=== PATIENT | female | born 1950 | race Caucasian/White ===

== ENCOUNTER 2019-09-20 14:18 | Inpatient (IN) | payer MEDICARE, MEDICAID ==
[~2019-09-20] VITALS: Ht 162.6 cm; Wt 76.2 kg
--- NOTE | 2019-09-20 14:25 | NUR ---
REC'D PER FROM DR. LIBERTY NOLEN DIRECT ADMIT. SEE ASSESSMENT. GEOVANNY CATHERINE admitted to room 412-1, with an admitting diagnosis of COPD, on 09/20/19 from [facility] via , accompanied by STAFF. GEOVANNY CATHERINE introduced to surroundings, call light, bed controls, phone, TV, temperature control, lights, meal times, smoking policy, visitor policy, side rail policy, bathrooms and showers. Patient Rights given to patient in the handbook. EGOVANNY CATHERINE verbalizes understanding that [facility] is not responsible for the loss or damage to any personal effects or valuables that are kept in the patients posession during their hospitalization. The following Patient Care Plans were discussed with the PT: Discharge Planning, PAIN, AND COPD. GEOVANNY CATHERINE verbalizes understanding of Interdisciplinary Patient Education. Patient and/or family were informed about the Rapid Response Team and its purpose.
[2019-09-20 15:05] LABS: ABG BASE EXCESS 9.5 MMOL/L (-2.5-2.5); ABG OXYGEN SATURATION 98 % (94-100); ABG PCO2 50 MMHG (35-45); ABG PH 7.45 (7.37-7.43); ABG PO2 89 MMHG (79-93); ABG TCO2 35.5 MMOL/L (21.0-31.0); ALLENS TEST POSITIVE; INSPIRED O2 6 L; PATIENT TEMP 36.8; VENTILATOR NO
--- NOTE | 2019-09-20 15:29 | NUR ---
EKTA'S CALLED TO DR. KOENIG.
[2019-09-20 15:39] LABS: BASOPHILS % (AUTO) 0 % (0-10); EOSINOPHILS # (AUTO) 0.2 10^3/uL (0.0-0.3); EOSINOPHILS % (AUTO) 1 % (0-10); HEMATOCRIT 34 % (35-52); HEMOGLOBIN 10.3 G/DL (11.5-16.0); LYMPHOCYTES # (AUTO) 1.2 X 10^3 (1.0-4.0); LYMPHOCYTES % (AUTO) 9 % (12-44); MEAN CORPUSCULAR HEMOGLOBIN 32 PG (25-34); MEAN CORPUSCULAR HGB CONC 30 G/DL (32-36); MEAN CORPUSCULAR VOLUME 107 FL (80-99); MONOCYTES % (AUTO) 7 % (0-12); NEUTROPHILS # (AUTO) 10.9 X 10^3 (1.8-7.8); NEUTROPHILS % (AUTO) 82 % (42-75); PLATELET COUNT 218 10^3/uL (130-400); RED CELL DISTRIBUTION WIDTH 16.2 % (10.0-14.5); WHITE BLOOD COUNT 13.2 10^3/uL (4.3-11.0)
[2019-09-20] MEDS ORDERED: AMIO200T4 PO (15:56)
[2019-09-20] MEDS ORDERED: HYDR-3812 PO (15:56)
[2019-09-20] MEDS ORDERED: RT-ALBUINH INH (15:56)
[2019-09-20] MEDS ORDERED: DICY20TA10 PO (15:56)
[2019-09-20] MEDS ORDERED: ACET325T38 PO (15:56)
[2019-09-20] MEDS ORDERED: PRED5TAB PO (15:56)
[2019-09-20] MEDS ORDERED: LEVO100T7 PO (15:56)
[2019-09-20] MEDS ORDERED: DIGO125T3 PO (15:56)
[2019-09-20] MEDS ORDERED: LETR2.5T5 PO (15:56)
[2019-09-20] MEDS ORDERED: VNL75T PO (15:56)
[2019-09-20] MEDS ORDERED: APIX5TAB PO (15:56)
[2019-09-20] MEDS ORDERED: FERR325T18 PO (15:56)
[2019-09-20] MEDS ORDERED: CYCL10TA9 PO (15:56)
[2019-09-20] MEDS ORDERED: NALO4SPR NS (15:56)
[2019-09-20] MEDS ORDERED: MAGN400T39 PO (15:56)
[2019-09-20] MEDS ORDERED: GABA-490 PO (15:56)
[2019-09-20] MEDS ORDERED: POTA10TA10 PO (15:56)
[2019-09-20] MEDS ORDERED: LINA145C PO (15:56)
[2019-09-20] MEDS ORDERED: ASCO-262 PO (15:56)
[2019-09-20] MEDS ORDERED: ONDA4TAB10 PO (15:56)
[2019-09-20] MEDS ORDERED: DICL100G18 TP (15:56)
[2019-09-20] MEDS ORDERED: DOCU-143 PO (15:56)
[2019-09-20] MEDS ORDERED: IPRA3AMP31 NEB (15:56)
[2019-09-20] MEDS ORDERED: BUME1TAB8 PO (15:56)
[2019-09-20 16:05] LABS: ALBUMIN 3.7 GM/DL (3.2-4.5); BILIRUBIN,TOTAL 0.5 MG/DL (0.1-1.0); CALCIUM 9.1 MG/DL (8.5-10.1); CREATININE SERUM 1.05 MG/DL (0.60-1.30); PHOSPHORUS 3.1 MG/DL (2.3-4.7); POTASSIUM 3.3 MMOL/L (3.6-5.0); TOTAL PROTEIN 6.6 GM/DL (6.4-8.2)
--- NOTE | 2019-09-20 16:05 | NUR ---
SPOKE WITH THE PATIENT ABOUT HER MEDICATIONS. SHE STATES SHE IS UNSURE OF WHAT EXACTLY SHE TAKES, [facility] [place] SETS UP HER MEDS IN A [facility]ILL [employer]PERATOR AND SHE TAKES THEM FROM THERE. SHE STATES THE ONLY THING SHE MANAGES ON HER OWN THAT IS NOT IN THAT PILL RENOVATOR MACHINE OPERATOR IS HER ALBUTEROL INHALER AND NEBULIZER SOLUTION. SHE STATES EVEN HER HYDROCODONE IS IN THE PILL RENOVATOR MACHINE OPERATOR. I HAD A LIST FAXED OVER FROM [facility] AND COMPARED IT WITH THE EXT MED HX. [facility] LIST STATES GABAPENTIN 300MG TID HOWEVER ON 09-12-19 [facility] FILLED GABAPENTIN 400MG TID #90 - I VERIFIED WITH THEM THIS WAS PICKED UP BY THE PATIENT AND IT WAS A RECENT DOSE CHANGE. I UPDATED THE MED REC WITH THIS MOST RECENT DOSE. THE LIST FROM [facility] HAS PREDNISONE 20MG 2 TABS DAILY X 5 DAYS DATED 09-03-19 - I CAN SEE WHERE A SCRIPT WAS FILLED LIKE THIS ON THAT DATE HOWEVER IT WOULD BE FINISHED. SHE HAS MORE RECENTLY FILLED PREDNISONE 5MG BID #40 09-12-19 - I PUT THAT DOSE ON THE MED REC AT THIS TIME. SHE IS PAST DUE FOR REFILL ON LEVOTHYROXINE, IT WAS LAST FILLED 100MCG #60 06-15-19 - HOWEVER WHEN I CALLED THE PHARMACY TO CONFIRM THEY STATED SHE HAS BEEN IN AND OUT OF THE HOSPITAL SO MAY HAVE HAD A SUPPLY BUILT UP. I NOTED THE DATE ON THE MED REC. HER HYDROCODONE WAS FILLED #168 FOR 28 DAYS HOWEVER [facility] LIST STATES 1 Q 6H, I PUT IT ON MED REC Q6H SINCE PATIENT STATES [facility] PUTS IT IN HER PILL RENOVATOR MACHINE OPERATOR. POTASSIUM WAS FILLED 10MEQ #240 FOR 30 DAYS 05-17-19 HOWEVER IT IS REPORTED ON [facility] LIST 2 TABS DAILY, I LEFT IT 2 TABS DAILY LIKE [facility] REPORTED IT BECAUSE IT WOULD BE GONE IF SHE WAS STILL TAKING IT WRITTEN AND THERE HAVE BEEN SEVERAL FILLS FOR VARIOUS FLUID PILLS ON THE EXT MED HX SO IT IS LIKELY THE DOSE HAS BEEN ADJUSTED. THE LIST FROM [facility] STATES VOLTAREN GEL Q6H PRN, [facility] HAS NEVER DISPENSED THIS MEDICATION. I DID ADD IT TO THE MED REC PRN SINCE IT WAS REPORTED BY [facility]. IN ADDITION TO THE MED LIST FROM [facility] FILLED NARCAN SPRAY 09-12-19 - THEY STATE IT IS STILL AT THE STORE AND WAITING FOR THE PATIENT TO BE HOME TO DELIVER IT. I ADDED IT TO THE MED REC AT THIS TIME. OTC MEDS: MAG OX 400MG BID TYLENOL 325MG Q6H PRN VITAMIN C 500MG DAILY COLACE 100MG BID FERROUS SULFATE 325MG DAILY
[2019-09-20 16:16] LABS: ANISOCYTOSIS SLIGHT; EOSINOPHILS % (MANUAL) 3 %; HYPOCHROMASIA SLIGHT; LYMPHOCYTES % (MANUAL) 10 %; MONOCYTES % (MANUAL) 5 %; NEUTROPHILS % (MANUAL) 82 %; STOMATOCYTES SLIGHT
[2019-09-20 16:21] VITALS: BP 145/85
[2019-09-20 16:23] VITALS: BP 134/79
--- NOTE | 2019-09-20 16:34 | Diagnostic Imaging Report ---
PROCEDURE: US Venous Lower Ext Ubaldo. TECHNIQUE: Multiple real-time grayscale images were obtained over the lower extremities in various projections, bilaterally. Additional duplex Doppler and color Doppler images were also obtained. INDICATION: Bilateral lower extremity pain. EXAMINATIONS: Both grayscale and color Doppler imaging of the deep veins of the lower extremities were performed with waveform analysis. FINDINGS: There is no intraluminal filling defect. Normal continuous flow is seen throughout the deep venous systems of both legs, and there is normal response to augmentation. The deep veins compress normally. IMPRESSION: No ultrasound evidence of deep venous thrombosis in either lower extremity. Dictated by: Dictated on workstation # [id number]
[2019-09-20] MEDS ORDERED: IOHEXOL 350 MG/ML 100 ML (OMNIPAQUE 350) VIAL IV ONE (16:45)
[2019-09-20] MEDS ORDERED: HOLD METFORMIN - RECEIVED CONTRAST 20 ML VIAL IV SCH (16:45)
[2019-09-20] MEDS ORDERED: NS 100 ML (IVPB) BAG IV ONE (16:45)
[2019-09-20] MEDS ORDERED: RT-ALBUTEROL/IPRATROPIUM 3 ML (DUONEB) VIAL IH PRN (16:45)
[2019-09-20] MEDS ORDERED: CATHETER FLUSH 10 ML SYR IV PRN ×2 (16:45→17:00)
--- NOTE | 2019-09-20 16:48 | NUR ---
ELEVATED TROPONIN. DR. KOENIG NOTIFIED. DR. PINEDA CONSULTED.
[2019-09-20] MEDS ORDERED: ENOXAPARIN 40 MG/0.4 ML (LOVENOX) SYR SC SCH (17:00)
--- NOTE | 2019-09-20 17:00 | NUR ---
STAT EKG WITH RESULTS TO DR. PINEDA.
[2019-09-20 17:15] LABS: BILIRUBIN,URINE NEGATIVE (NEGATIVE); CLARITY,URINE CLEAR; COLOR,URINE YELLOW; GLUCOSE, URINE (UA) NEGATIVE (NEGATIVE); KETONES,URINE NEGATIVE (NEGATIVE); LEUKOCYTE ESTERASE ,URINE NEGATIVE (NEGATIVE); NITRITE,URINE NEGATIVE (NEGATIVE); PROTEIN,URINE TRACE (NEGATIVE)
[2019-09-20] MEDS: methylPREDNISolone 40 MG/ML (Solu-MEDROL) VIAL IV SCH ×2 (17:15→23:08)
[2019-09-20] MEDS: NS IV 1000 ML 1,000 ML IV SCH (17:15)
--- NOTE | 2019-09-20 17:15 | Consultation-Cardiology ---
HPI-Cardiology Cardiology Consultation Date of Consultation 09/20/19 Date of Admission Time Seen by Provider: 17:12 Indication: Congestive heart failure HPI 68-year-old lady with history of congestive heart failure, chronic lip and her diastolic dysfunction, chronic atrial fibrillation, severe COPD. She was scheduled to see Dr. Skinner today in his office where she was noted to have increasing shortness of breath, patient has been traveling from [place], reported that she was tired and having worsening dyspnea, she was admitted for evaluation. She was noted to have elevated troponin level and BMP. Reported that she had a stress test done about 6 months ago which was normal, has chronic atrial fibrillation, no known history of coronary artery disease. Denied any chest pain. Denied any palpitation, complaining of fatigue and loss of energy Home Medications & Allergies Allergies: Coded Allergies: ciprofloxacin (Unverified Allergy, Severe, RASH AND SOA, 09/20/19) levofloxacin (Verified Allergy, Severe, RASH AND SOA, 09/20/19) nitrofurantoin (Verified Allergy, Intermediate, UNSURE, 09/20/19) zolpidem (Verified Adverse Reaction, Mild, CONFUSION, 09/20/19) clopidogrel (Verified Adverse Reaction, Unknown, CAUSED HER TO BRUISE TOO EASILY, 09/20/19) heparin (Verified Adverse Reaction, Unknown, CAUSED HER TO BRUISE TOO EA SILY, 09/20/19) lorazepam (Verified Adverse Reaction, Unknown, DOES NOT WANT HER TO HAVE, 09/20/19) piroxicam (Verified Adverse Reaction, Unknown, PT UNSURE, 09/20/19) Uncoded Allergies: IV DYE (Allergy, Intermediate, RASH, 09/20/19) Home Medication List Reviewed: Yes ROA-Yygdyu-Jbrpfj Hx Patient Social History Marital Status: Employed/Student: retired Alcohol Use: Denies Use Recreational Drug Use: No Smoking Status: Former Smoker Type Used: Cigarettes Recent Foreign Travel: No Recent Infectious Disease Expo: No Recent Hopitalizations: No Physical Abuse Screen: No Sexual Abuse: No Immunizations Up To Date Date of Influenza Vaccine: Jul 17, 2019 Past Medical History Discussed below Family Medical History Family Medical Hx Noncontributory to her current condition Review of Systems-General Review of Systems Constitutional: see HPI, malaise, weakness EENTM: see HPI, no symptoms reported Respiratory: see HPI, cough, dyspnea on exertion, orthopnea, short of breath Cardiovascular: see HPI; No chest pain; edema; No Hx of Intervention, No palpitations, No syncope, No vascular heart diseas, No other Gastrointestinal: no symptoms reported, see HPI Genitourinary: no symptoms reported, see HPI Musculoskeletal: see HPI, joint pain, muscle stiffness, muscle weakness Skin: no symptoms reported, see HPI Psychiatric/Neurological: No Symptoms Reported, See HPI Reviewed Test Results Reviewed Test Results Lab Laboratory Tests Test 09/20/19 14:56 09/20/19 15:30 09/20/19 16:00 Range/Units Blood Gas Puncture Site RIGHT RADIAL Blood Gas Patient Temperature 36.8 Arterial Blood pH 7.45 H 7.37-7.43 Arterial Blood Partial Pressure CO2 50 H 35-45 MMHG Arterial Blood Partial Pressure O2 89 79-93 MMHG Arterial Blood HCO3 34 H 23-27 MMOL/L Arterial Blood Total CO2 35.5 H 21.0-31.0 MMOL/L Arterial Blood Oxygen Saturation 98 94-100 % Arterial Blood Base Excess 9.5 H -2.5-2.5 MMOL/L Polo Test POSITIVE Blood Gas Ventilator Setting NO Blood Gas Inspired Oxygen 6 L White Blood Count 13.2 H 4.3-11.0 10^3/uL Red Blood Count 3.21 L 4.35-5.85 10^6/uL Hemoglobin 10.3 L 11.5-16.0 G/DL Hematocrit 34 L 35-52 % Mean Corpuscular Volume 107 H 80-99 FL Mean Corpuscular Hemoglobin 32 25-34 PG Mean Corpuscular Hemoglobin Concent 30 L 32-36 G/DL Red Cell Distribution Width 16.2 H 10.0-14.5 % Platelet Count 218 130-400 10^3/uL Mean Platelet Volume 10.0 7.4-10.4 FL Neutrophils (%) (Auto) 82 H 42-75 % Lymphocytes (%) (Auto) 9 L 12-44 % Monocytes (%) (Auto) 7 0-12 % Eosinophils (%) (Auto) 1 0-10 % Basophils (%) (Auto) 0 0-10 % Neutrophils # (Auto) 10.9 H 1.8-7.8 X 10^3 Lymphocytes # (Auto) 1.2 1.0-4.0 X 10^3 Monocytes # (Auto) 1.0 0.0-1.0 X 10^3 Eosinophils # (Auto) 0.2 0.0-0.3 10^3/uL Basophils # (Auto) 0.0 0.0-0.1 10^3/uL Neutrophils % (Manual) 82 % Lymphocytes % (Manual) 10 % Monocytes % (Manual) 5 % Eosinophils % (Manual) 3 % Hypochromasia SLIGHT Anisocytosis SLIGHT Macrocytosis SLIGHT Stomatocytes SLIGHT Sodium Level 137 135-145 MMOL/L Potassium Level 3.3 L 3.6-5.0 MMOL/L Chloride Level 92 L 98-107 MMOL/L Carbon Dioxide Level 33 H 21-32 MMOL/L Anion Gap 12 5-14 MMOL/L Blood Urea Nitrogen 14 7-18 MG/DL Creatinine 1.05 0.60-1.30 MG/DL Estimat Glomerular Filtration Rate 52 BUN/Creatinine Ratio 13 Glucose Level 104 70-105 MG/DL Lactic Acid Level 0.83 0.50-2.00 MMOL/L Calcium Level 9.1 8.5-10.1 MG/DL Corrected Calcium 9.3 8.5-10.1 MG/DL Phosphorus Level 3.1 2.3-4.7 MG/DL Magnesium Level 2.0 1.6-2.4 MG/DL Total Bilirubin 0.5 0.1-1.0 MG/DL Aspartate Amino Transf (AST/SGOT) 19 5-34 U/L Alanine Aminotransferase (ALT/SGPT) 18 0-55 U/L Alkaline Phosphatase 157 H 40-136 U/L Troponin I 0.063 H <0.028 NG/ML B-Type Natriuretic Peptide 770.6 H <100.0 PG/ML Total Protein 6.6 6.4-8.2 GM/DL Albumin 3.7 3.2-4.5 GM/DL Physical Exam Physical Exam Vital Signs Vital Signs - First Documented 09/20/19 16:21 Temp 36.5 Pulse 92 Resp 18 B/P (MAP) 145/85 (105) Pulse Ox 95 O2 Delivery Nasal Cannula O2 Flow Rate 6.00 Capillary Refill : Height, Weight, BMI Height: '" Weight: lbs. oz. kg; 29.19 BMI Method: General Appearance: WD/WN, Mild Distress Eyes: Bilateral Eye Normal Inspection, Bilateral Eye PERRL, Bilateral Eye EOMI HEENT: PERRL/EOMI, TMs Normal, Normal ENT Inspection, Pharynx Normal, Moist Mucous Membranes Neck: Full Range of Motion, Normal Inspection, Non Tender, Supple, Carotid Bruit Respiratory: Chest Non Tender, No Accessory Muscle Use, No Respiratory Distress, Rhonci Cardiovascular: Regular Rate, Rhythm, No Edema, No Gallop, No JVD, Normal Peripheral Pulses, Systolic Murmur Gastrointestinal: Normal Bowel Sounds, No Organomegaly, No Pulsatile Mass, Non Tender, Soft Back: Normal Inspection, No CVA Tenderness, No Vertebral Tenderness Extremity: Normal Capillary Refill, Normal Inspection, Normal Range of Motion, Non Tender, No Calf Tenderness, Pedal Edema (Mild) Neurologic/Psychiatric: Alert, Oriented x3, No Motor/Sensory Deficits, Normal Mood/Affect Skin: Normal Color, Warm/Dry Lymphatic: No Adenopathy A/P-Cardiology Admission Diagnosis Shortness of breath Congestive heart failure, chronic compensated left ventricular diastolic dysfunction Coronary artery disease Hypertension Hyperlipidemia Assessment/Plan Shortness of breath, acute exacerbation of COPD, managed by Dr. Skinner. Chronic atrial fibrillation, maintained on Eliquis, digoxin, amiodarone, continue to monitor, evaluate EKG, planning to evaluate 2-D echocardiogram Congestive heart failure, chronic compensated left ventricular diastolic dysfunction, mild elevation in BNP level. I will evaluate 2-D echocardiogram. Type II myocardial infarction, elevated troponin level, minimal, probably due to hypoxemia and shortness of breath, reporting that she had a stress test done about 6 months ago and it was normal at [facility] in [place], I will try to obtain copy of the results. Hypertension, restart home medication and monitor blood pressure Hyperlipidemia, monitor lipids Diabetes mellitus, followed and managed by primary care physician History of TIA with full recovery Clinical Quality Measures DVT/VTE Risk/Contraindication: Risk Factor Score Per Nursin RFS Level Per Nursing on Admit: 4+=Very High ODALYS PINEDA MD Sep 20, 2019 17:15 POS
[2019-09-20 17:44] LABS: AMORPHOUS SEDIMENT,UR FEW AMOR PHOSPHATE /LPF; BACTERIA,URINE TRACE /HPF; RBC,URINE 0-2 /HPF; WBC,URINE 0-2 /HPF
[2019-09-20] MEDS: BUMETANIDE 1 MG (BUMEX) TAB PO SCH (18:35)
[2019-09-20] MEDS: RT-ALBUTEROL/IPRATROPIUM 3 ML (DUONEB) VIAL IH SCH ×2 (18:46→21:47)
[2019-09-20] MEDS: DOCUSATE SODIUM 100 MG (COLACE) CAP PO SCH (19:32)
[2019-09-20] MEDS: AMIODARONE 200 MG (CORDARONE) TAB PO SCH (19:32)
[2019-09-20] MEDS: APIXABAN 5 MG (ELIQUIS) TABLET PO SCH (19:32)
[2019-09-20] MEDS: FAMOTIDINE 20 MG (PEPCID) TABLET PO SCH (19:32)
[2019-09-20 20:00] VITALS: BP 164/80
[2019-09-20] MEDS ORDERED: RT-ADVAIR HFA 115/21 MCG PER PUFF IH SCH (20:00)
--- NOTE | 2019-09-20 20:02 | Diagnostic Imaging Report ---
PROCEDURE: CT angiography of the chest with contrast. TECHNIQUE: Multiple contiguous axial images were obtained through the chest after uneventful bolus administration of intravenous contrast. 3D reconstructed CTA MIP acquisitions were also performed. Auto Exposure Controls were utilized during the CT exam to meet ALARA standards for radiation dose reduction. INDICATION: Hypoxemia. FINDINGS: The lungs are clear. There appear to be mild emphysematous changes. There are no pulmonary emboli. There is no evidence of right ventricular strain. There is calcific atherosclerosis of the aorta but no aneurysm or dissection. The ascending aorta measures 4 cm. IMPRESSION: No acute abnormality in the chest. Dictated by: Dictated on workstation # [id number]
[2019-09-20] MEDS: HYDROcodone/APAP 5 MG/325 MG (LORTAB) TAB PO PRN (20:13)
[2019-09-20] MEDS ORDERED: BUMETANIDE PO SCH (21:00)
[2019-09-20] MEDS ORDERED: CYCLOBENZAPRINE 10 MG (FLEXERIL) TAB ONE (21:21)
[2019-09-20] MEDS ORDERED: GABAPENTIN 400 MG (NEURONTIN) CAP ONE (21:21)
[2019-09-20] MEDS: CYCLOBENZAPRINE 10 MG (FLEXERIL) TAB PO PRN (21:26)
[2019-09-20] MEDS: GABAPENTIN 400 MG (NEURONTIN) CAP PO SCH (21:27)
[2019-09-21] VITALS: BP 139/93
[2019-09-21] MEDS: RT-ALBUTEROL/IPRATROPIUM 3 ML (DUONEB) VIAL IH SCH ×5 (02:00→20:25)
[2019-09-21] MEDS: NS IV 1000 ML 1,000 ML IV SCH (03:23)
[2019-09-21] MEDS: HYDROcodone/APAP 5 MG/325 MG (LORTAB) TAB PO PRN ×4 (03:25→23:44)
[2019-09-21 04:00] VITALS: BP 135/87
[2019-09-21] MEDS: CYCLOBENZAPRINE 10 MG (FLEXERIL) TAB PO PRN ×3 (05:05→21:48)
[2019-09-21] MEDS: BUMETANIDE 1 MG (BUMEX) TAB PO SCH ×2 (05:05→17:19)
[2019-09-21] MEDS: methylPREDNISolone 40 MG/ML (Solu-MEDROL) VIAL IV SCH (05:05)
[2019-09-21] MEDS: KCL 10 MEQ TAB (MICRO K) PO SCH (05:14)
[2019-09-21 05:15] LABS: BASOPHILS % (AUTO) 0 % (0-10); EOSINOPHILS % (AUTO) 0 % (0-10); HEMATOCRIT 36 % (35-52); HEMOGLOBIN 10.9 G/DL (11.5-16.0); LYMPHOCYTES # (AUTO) 0.5 X 10^3 (1.0-4.0); LYMPHOCYTES % (AUTO) 5 % (12-44); MEAN CORPUSCULAR HEMOGLOBIN 32 PG (25-34); MEAN CORPUSCULAR HGB CONC 30 G/DL (32-36); MEAN CORPUSCULAR VOLUME 107 FL (80-99); MEAN PLATELET VOLUME 10.8 FL (7.4-10.4); MONOCYTES # (AUTO) 0.1 X 10^3 (0.0-1.0); MONOCYTES % (AUTO) 1 % (0-12); NEUTROPHILS # (AUTO) 10.6 X 10^3 (1.8-7.8); NEUTROPHILS % (AUTO) 95 % (42-75); PLATELET COUNT 207 10^3/uL (130-400); RED CELL DISTRIBUTION WIDTH 15.7 % (10.0-14.5); WHITE BLOOD COUNT 11.2 10^3/uL (4.3-11.0)
[2019-09-21 05:40] LABS: ALBUMIN 3.7 GM/DL (3.2-4.5); BILIRUBIN,TOTAL 0.5 MG/DL (0.1-1.0); CALCIUM 8.3 MG/DL (8.5-10.1); CREATININE SERUM 1.04 MG/DL (0.60-1.30); MAGNESIUM 1.8 MG/DL (1.6-2.4); PHOSPHORUS 3.1 MG/DL (2.3-4.7); POTASSIUM 3.3 MMOL/L (3.6-5.0); TOTAL PROTEIN 6.1 GM/DL (6.4-8.2)
--- NOTE | 2019-09-21 05:49 | Pulmonary Consultation ---
History of Present Illness History of Present Illness Date Seen by Provider: Sep 21, 2019 Time Seen by Provider: 05:44 Date of Admission Reason for Visit: Congestive heart failure History of Present Illness 68yo with hx of CHF, severe oxygen dependent COPD, DEANDRE, CAD, Afib presented as direct admit from my office secondary to worsening SOB and hypoxia. While in my office her Sp02 was 87% on 5 liters of oxygen and her lips were cyanotic. She has been coughing up yellow/green sputum. No fevers. PT states she has been waking up with worsening SOB over the last wk. Pt lives in [place]. Allergies and Home Medications Allergies Coded Allergies: ciprofloxacin (Unverified Allergy, Severe, RASH AND SOA, 09/20/19) levofloxacin (Verified Allergy, Severe, RASH AND SOA, 09/20/19) nitrofurantoin (Verified Allergy, Intermediate, UNSURE, 09/20/19) zolpidem (Verified Adverse Reaction, Mild, CONFUSION, 09/20/19) clopidogrel (Verified Adverse Reaction, Unknown, CAUSED HER TO BRUISE TOO EASILY, 09/20/19) heparin (Verified Adverse Reaction, Unknown, CAUSED HER TO BRUISE TOO EASILY, 09/20/19) lorazepam (Verified Adverse Reaction, Unknown, DOES NOT WANT HER TO HAVE, 09/20/19) piroxicam (Verified Adverse Reaction, Unknown, PT UNSURE, 09/20/19) Uncoded Allergies: IV DYE (Allergy, Intermediate, RASH, 09/20/19) Home Medications Acetaminophen 325 Mg Tablet, 325 MG PO Q6H PRN for PAIN-MILD (1-4) OR TEMPATURE, (Reported) Albuterol Sulfate 1 Puff Puff, 1-2 PUFF INH Q4H PRN for SHORTNESS OF BREATH, (Reported) 1 PUFF = 90 MCG Amiodarone HCl 200 Mg Tablet, 200 MG PO BID, (Reported) Apixaban 5 Mg Tablet, 5 MG PO BID, (Reported) Ascorbate Calcium 500 Mg Tablet, 500 MG PO DAILY, (Reported) Bumetanide 1 Mg Tablet, 2.5 MG PO BID, (Reported) TAKES 2 & 1/2 (1MG) TABLET Cyclobenzaprine HCl 10 Mg Tablet, 10 MG PO TID PRN for MUSCLE SPASMS, (Reported) Diclofenac Sodium 100 Gm Gel..gram., 2 GM TP Q6H PRN for ARTHRITIS PAIN, (Reported) Dicyclomine HCl 20 Mg Tablet, 20 MG PO TID, (Reported) Digoxin 125 Mcg Tablet, 125 MCG PO DAILY, (Reported) Docusate Sodium 100 Mg Capsule, 100 MG PO BID, (Reported) Ferrous Sulfate 325 Mg Tablet, 325 MG PO DAILY, (Reported) Gabapentin 400 Mg Capsule, 400 MG PO TID, (Reported) Hydrocodone/Acetaminophen 1 Each Tablet, 1 TAB PO Q6H PRN for PAIN-MODERATE (5- 7), (Reported) Ipratropium/Albuterol Sulfate 3 Ml Ampul.neb, 3 ML NEB QID PRN for SHORTNESS OF BREATH, (Reported) Letrozole 2.5 Mg Tablet, 2.5 MG PO DAILY, (Reported) Levothyroxine Sodium 100 Mcg Tablet, 100 MCG PO DAILY, (Reported) LAST FILLED #60 06-15-19 Linaclotide 145 Mcg Capsule, 145 MCG PO DAILY, (Reported) Magnesium Oxide 400 Mg Tablet, 400 MG PO BID, (Reported) Naloxone HCl 4 Mg Abell, NS UD PRN for OVERDOSE, (Reported) Ondansetron HCl 4 Mg Tablet, 4 MG PO Q6H PRN for NAUSEA/VOMITING-1ST LINE, (Reported) Potassium Chloride 10 Meq Tablet.er, 20 MEQ PO DAILY, (Reported) TAKES 2 (10MEQ) TABLETS Prednisone 5 Mg Tablet, 5 MG PO BID, (Reported) #40 TABLETS/ 20 DAY SUPPLY FILLED 09-12-19 Venlafaxine HCl 75 Mg Tab, 75 MG PO DAILY, (Reported) Past Ayrvysc-Kjreut-Lopjau Hx Patient Social History Alcohol Use: Denies Use Recreational Drug Use: No Smoking Status: Former Smoker Type Used: Cigarettes Former Smoker, Quit: Sep 20, 2016 Recent Foreign Travel: No Contact w/Someone Who Travel: No Recent Infectious Disease Expo: No Recent Hopitalizations: No Immunizations Up To Date Date of Influenza Vaccine: Jul 17, 2019 Seasonal Allergies Seasonal Allergies: No Past Medical History Surgeries: Yes Respiratory: Yes Sleep Apnea, COPD Currently Using BIPAP: Yes Cardiac: Yes Neurological: No Genitourinary: No Gastrointestinal: Yes Irritable Bowel Musculoskeletal: Yes Chronic Back Pain, Fractures Endocrine: No HEENT: No Loss of Vision: Denies Cancer: Yes Breast Did You Recieve Any Treatments: Yes What Type of Treatment Did You: Chemotherapy, Radiation, Surgical Intervention Psychosocial: No Integumentary: No Blood Disorders: No Review of Systems Time Seen by Provider: 05:56 Constitutional: Sweats, Weakness, Malaise; No: Fever, Chills, Other Eyes: No: Pain, Vision change, Conjunctivae inflammation, Eyelid inflammation, Other, Redness ENT: Nose congestion; No: Ear pain, Ear discharge, Nose pain, Nose discharge, Mouth pain, Mouth swelling, Throat pain, Throat swelling, Other Respiratory: Cough, Shortness of breath, SOB with excertion, Wheezing, Sputum Cardiovascular: Palpitations, Paroxysmal Noc. Dyspnea, Lt Headedness; No: Chest Pain, Orthopnea, Edema, Other Gastrointestinal: No: Nausea, Vomiting, Abdominal Pain, Diarrhea, Constipation, Melena, Hematochezia, Other Sepsis Event Evaluation Height, Weight, BMI Height: '" Weight: lbs. oz. kg; 29.19 BMI Method: Exam Exam Vital Signs Date Time Temp Pulse Resp B/P (MAP) Pulse Ox O2 Delivery O2 Flow Rate FiO2 09/21/19 04:00 36.1 92 18 135/87 (103) 100 Nasal Cannula 6.00 09/21/19 02:00 76 97 45.00 09/21/19 00:34 84 09/21/19 00:00 35.8 85 18 139/93 (108) 100 Nasal Cannula 6.00 09/20/19 21:47 102 99 45.00 09/20/19 20:00 36.7 89 20 164/80 (108) 93 Nasal Cannula 6.00 09/20/19 19:30 Nasal Cannula 6.00 09/20/19 18:52 95 Nasal Cannula 6.00 09/20/19 18:50 88 09/20/19 18:46 95 Nasal Cannula 6.00 09/20/19 18:44 Nasal Cannula 6.00 09/20/19 17:04 82 09/20/19 16:23 36.8 98 22 134/79 98 Nasal Cannula 6.00 6.00 09/20/19 16:21 36.5 92 18 145/85 (105) 95 Nasal Cannula 6.00 I & O 09/21/19 07:00 Intake Total 2860 ml Output Total 4500 ml Balance -1640 ml Height & Weight Height: '" Weight: lbs. oz. kg; 29.19 BMI Method: General Appearance: WD/WN, Mild Distress HEENT: PERRL/EOMI, TMs Normal, Normal ENT Inspection, Pharynx Normal, Moist Mucous Membranes Neck: Full Range of Motion, Normal Inspection, Non Tender, Supple, Carotid Bruit Respiratory: Chest Non Tender, No Accessory Muscle Use, No Respiratory Distress, Rhonci Cardiovascular: Regular Rate, Rhythm, No Edema, No Gallop, No JVD, Normal Per ipheral Pulses, Systolic Murmur Capillary Refill: Less Than 3 Seconds Extremity: Normal Capillary Refill, Normal Inspection, Normal Range of Motion, Non Tender, No Calf Tenderness, Pedal Edema (Mild) Neurologic/Psychiatric: Alert, Oriented x3, No Motor/Sensory Deficits, Normal Mood/Affect Skin: Normal Color, Warm/Dry Lymphatic: No Adenopathy Results Lab Laboratory Tests 09/20/19 15:30 09/21/19 05:00 Assessment/Plan Assessment/Plan Acute worsening SOB with hypoxia -CTA of chest is negative for PE -Bilateral dopplers negative for PE COPDAE -Solumedrol -- change to prednisone -reji Real Pulmonary edema -S/p bumex 2 mg -Echocardiogram pending -SL IVF NSTEMI -Cardiology following DEANDRE -Uses CPAP QHS at home Chronic Afib - rate control CAD HTN/Hyperlipidemia SHANI LR DO Sep 21, 2019 05:49 POS
[2019-09-21] MEDS: predniSONE 20 MG TAB PO SCH (06:07)
[2019-09-21 08:00] VITALS: BP 162/73
[2019-09-21] MEDS: RT-ADVAIR HFA 115/21 MCG PER PUFF IH SCH ×2 (08:02→20:25)
--- NOTE | 2019-09-21 08:24 | Diagnostic Imaging Report ---
INDICATION: COPD. TIME OF EXAM: 3:47 AM Correlation is made with prior chest from 06/24/2019. Heart is enlarged. There are interstitial changes in both lungs. Right chest wall port has tip overlying the SVC. There is no effusion or pneumothorax. IMPRESSION: Cardiomegaly and interstitial changes. Dictated by: Dictated on workstation # [id number]
[2019-09-21] MEDS: AMIODARONE 200 MG (CORDARONE) TAB PO SCH ×2 (08:50→21:48)
[2019-09-21] MEDS: APIXABAN 5 MG (ELIQUIS) TABLET PO SCH ×2 (08:50→21:49)
[2019-09-21] MEDS: DIGOXIN 0.125 MG (LANOXIN) TAB PO SCH (08:50)
[2019-09-21] MEDS: GABAPENTIN 400 MG (NEURONTIN) CAP PO SCH ×3 (08:50→21:48)
[2019-09-21] MEDS: FERROUS SULF 325 MG (IRON) TAB PO SCH (08:50)
[2019-09-21] MEDS: DOCUSATE SODIUM 100 MG (COLACE) CAP PO SCH ×2 (08:50→21:49)
--- NOTE | 2019-09-21 09:31 | History & Physical-Hospitalist ---
MACEY MOTA [facility] 09/21/19 0931: History of Present Illness HPI/Chief Complaint Mamta Fuentes is a 68 y/o female that is presented to Dr. Pedraza office for an appointment and was found to be short of breath and had a SPO2 stat of 87% on 5L. Additionally she was having an AFIB event at the time. The patient has a PMH of severe oxygen dependent COPD and she uses 4L of oxygen at home. The patient also has a history of AFIB for which she is on medication for. She states her breathing has been getting worse for a while and she has been coughing off and on with green/yellow sputum. She denies fevers and night sweats and states that increasing her oxygen has helped. She denies any abnormal weight loss at this time. Nothing makes it worse and she denies pain. CT of the chest showed no acute abnormalities and U/S showed no DVT. Patient was found to have Elevated troponin and BNP along with leukocytosis. Source: patient Date Seen 09/21/19 Attending Physician Davie Yao MD PCP No,Local Physician Referring Physician Date of Admission Sep 20, 2019 at 14:27 Home Medications & Allergies Home Medications Reviewed patient Home Medication Reconciliation performed by pharmacy medication reconciliations orthotics prosthetics technician and/or nursing. Patients Allergies have been reviewed. Allergies Allergies Coded Allergies ciprofloxacin (Unverified Allergy, Severe, RASH AND SOA, 09/20/19) levofloxacin (Verified Allergy, Severe, RASH AND SOA, 09/20/19) nitrofurantoin (Verified Allergy, Intermediate, UNSURE, 09/20/19) zolpidem (Verified Adverse Reaction, Mild, CONFUSION, 09/20/19) clopidogrel (Verified Adverse Reaction, Unknown, CAUSED HER TO BRUISE TOO EASILY, 09/20/19) heparin (Verified Adverse Reaction, Unknown, CAUSED HER TO BRUISE TOO EASILY, 09/20/19) lorazepam (Verified Adverse Reaction, Unknown, DOES NOT WANT HER TO HAVE, 09/20/19) piroxicam (Verified Adverse Reaction, Unknown, PT UNSURE, 09/20/19) Uncoded Allergies IV DYE ( Allergy, Intermediate, RASH, 09/20/19) Past Ssrrpqa-Xbrjto-Onrwlo Hx Patient Social History Marrital Status: Employed/Student: retired Alcohol Use: Denies Use Recreational Drug Use: No Smoking Status: Former Smoker (Smoked for 40 years about 2 packs a day) Former Smoker, Quit: Sep 20, 2016 Type Used: Cigarettes Physical Abuse Screen: No Sexual Abuse: No Recent Foreign Travel: No Contact w/other who traveled: No Recent Hopitalizations: No Recent Infectious Disease Expo: No Immunizations Up To Date Date of Influenza Vaccine: Jul 17, 2019 Seasonal Allergies Seasonal Allergies: No Past Medical History Surgeries: Breast (lupectomy on RT received chemo and radiaiton ), Orthopedic (Both hips and duane in right leg) Pt is having a hard time remembering everything Respiratory: COPD, Sleep Apnea Currently Using BIPAP: Yes Cardiac: Atrial Fibrillation, High Cholesterol, Hypertension Neurological: TIA states she has issues recalling memories at times Gastrointestinal: Gastroesophageal Reflux, Irritable Bowel Musculoskeletal: Chronic Back Pain, Fractures Loss of Vision: Bilateral (Yulinet states she has been losing her vision over the last year) Cancer: Breast Did You Recieve Any Treatments: Yes What Type of Treatment Did You: Chemotherapy, Radiation, Surgical Intervention History of Blood Disorders: No Review of Systems Constitutional: No fever; weakness EENTM: vision loss, dental problems (has dentures uppers); No throat pain Respiratory: cough, phlegm, short of breath (No longer feeling SOB at this time ) Cardiovascular: No chest pain, No edema Gastrointestinal: No abdominal pain, No nausea, No vomiting Genitourinary: no symptoms reported Musculoskeletal: no symptoms reported Skin: other (Patient has noted a lump form on the back of head. ) Psychiatric/Neurological: No Symptoms Reported Physical Exam Physical Exam Vital Signs Vital Signs - First Documented 09/20/19 16:21 Temp 36.5 Pulse 92 Resp 18 B/P (MAP) 145/85 (105) Pulse Ox 95 O2 Delivery Nasal Cannula O2 Flow Rate 6.00 Capillary Refill : Less Than 3 SecondsLess Than 3 Seconds Height, Weight, BMI Height: '" Weight: lbs. oz. kg; 29.19 BMI Method: General Appearance: No Apparent Distress, Chronically ill Eyes: Bilateral Eye PERRL, Bilateral Eye EOMI HEENT: PERRL/EOMI, Moist Mucous Membranes Neck: Non Tender, Supple Respiratory: Chest Non Tender, No Accessory Muscle Use, No Respiratory Distress Cardiovascular: No Edema, Normal Peripheral Pulses Gastrointestinal: Normal Bowel Sounds, Distended; No Guarding; Hernia (Umbilical ) Back: Muscle Spasm Extremity: Normal Capillary Refill, No Calf Tenderness, No Pedal Edema Neurologic/Psychiatric: Alert, Oriented x3, Normal Mood/Affect, armature coil winder II-XII Norm as Tested Skin: Normal Color, Warm/Dry Lymphatic: No Adenopathy Results Results/Procedures Labs Laboratory Tests 09/20/19 15:30 09/21/19 05:00 Patient resulted labs reviewed. Assessment/Plan Admission Diagnosis AFIB SOB and Hypoxia Assessment and Plan Chronic AFIB CHF Type II AL Acute COPD exacerbation DEANDRE HTN Hyperlipidemia Leukocytosis Hypothyroidism Hypokalemia Chronic MSK pain Chronic AFIB - Elevated troponin, serial monitoring - ECHO scheduled - Cardiology on board - on apixaban and amiodarone - rate control CHF - on Digoxin - monitor potassium, consider restarting potassium supplement - elevated BNP, receiving diuretics Type II AL - continue to monitor - cardiology on board - continue oxygen support Hypothyroidism - Check TSH and T4 Acute COPD exacerbation - Prednisone - Albuterol and Ipratropium - Continue oxygen support - Fluanisone/salmeterol tx PRN - test for influenza DEANDRE - continue CPAP - appreciate respiratory therapy help HTN - continue home medications Hyperlipidemia - monitoring Leukocytosis - resolving will continue to monitor Hypokalemia - consider restarting potassium Chronic MSK pain - continue pain management Clinical Quality Measures DVT/VTE Risk/Contraindication: Risk Factor Score Per Nursin RFS Level Per Nursing on Admit: 4+=Very High DAVIE YAO MD 09/21/19 1619: History of Present Illness Time Seen by a Provider: 11:15 Past Uvbrvil-Suqqus-Aobpsw Hx Past Med/Social Hx: Reviewed Nursing Past Med/Soc Hx Family History Reviewed Nursing Family Hx No Pertinent Family Hx Results Results/Procedures Imaging: Reviewed Imaging Report Assessment/Plan Admission Diagnosis Admission Status: Inpatient Order (span 2 midnights) Reason for Inpatient Admission: Admitted to inpatient for acute respiratory distress with hypoxia, given chornic medical illnesses will take more than two midnight to stablize for discharge Assessment and Plan Pt admitted due to acute respiratory distress with hypoxia. Treated with steroids and diuresis and has improved significantly today. Will continue current regimen and get echo as all previous cardiac studies were done in [place]. Cardiology consulted along with Pulmnology. Appreciate their assistance. Bumex started today, will monitor renal function with this. Diagnosis/Problems Diagnosis/Problems (1) COPD (chronic obstructive pulmonary disease) Status: Acute Qualifiers: COPD type: unspecified COPD Qualified Codes: J44.9 - Chronic obstructive pulmonary disease, unspecified (2) Atrial fibrillation Status: Chronic Qualifiers: Atrial fibrillation type: longstanding persistent Qualified Codes: I48.11 - Longstanding persistent atrial fibrillation (3) Acute respiratory distress Status: Acute (4) Dementia Status: Chronic Qualifiers: Dementia type: unspecified type Dementia behavioral disturbance: without behavioral disturbance Qualified Codes: F03.90 - Unspecified dementia without behavioral disturbance (5) Hypothyroidism Status: Chronic Qualifiers: Hypothyroidism type: unspecified Qualified Codes: E03.9 - Hypothyroidism, unspecified (6) Essential (primary) hypertension Status: Chronic (7) Normocytic anemia Status: Chronic (8) Non-insulin dependent type 2 diabetes mellitus Status: Chronic (9) Cardiomyopathy Status: Chronic Qualifiers: Cardiomyopathy type: unspecified Qualified Codes: I42.9 - Cardiomyopathy, unspecified Supervisory-Addendum Brief Verification & Attestation Participated in pt care: history, MDM, physical Personally performed: exam, history, MDM, supervision of care Care discussed with: Medical Student Procedures: n/a Results interpretation: Verified all documentation Verification and Attestation of Medical Student E/M Service A medical student performed and documented this service in my presence. I reviewed and verified all information documented by the medical student and made modifications to such information, when appropriate. I personally performed the physical exam and medical decision making. Davie Yao, Sep 21, 2019,16:20 MACEY MOTA [facility] Sep 21, 2019 09:31 DAVIE DICKEY MD Sep 21, 2019 16:19 POS
--- NOTE | 2019-09-21 10:29 | Cardiology Progress Note ---
Subjective Date Seen by Provider: Sep 21, 2019 Time Seen by Provider: 10:26 Subjective/Events-last exam patient is sitting in bed, feeling better, breathing better Review of Systems General: No Chills, No Night Sweats, No Fatigue, No Malaise, No Appetite, No Other HEENT: No Head Aches, No Visual Changes, No Eye Pain, No Ear Pain, No Dysphasia, No Sinus Congestion, No Post Nasal Drip, No Sore Throat, No Other Pulmonary: Dyspnea; No Cough, No Pleuritic Chest Pain, No Other Cardiovascular: No: Chest Pain, Palpitations, Orthopnea, Paroxysmal Noc. Dyspnea, Edema, Lt Headedness, Other Focused Exam Lactate Level 09/20/19 15:30: Lactic Acid Level 0.83 Objective-Cardiology Exam Last Set of Vital Signs Vital Signs 09/21/19 09/21/19 08:05 10:08 Temp 36.4 O2 Delivery Nasal Cannula O2 Flow Rate 4.00 Capillary Refill : Less Than 3 SecondsLess Than 3 Seconds I&O Intake and Output 09/21/19 00:00 Intake Total 1200 ml Output Total 2900 ml Balance -1700 ml Intake Oral 1200 ml Output Urine Total 2900 ml Daily Weight Change No No General: Alert, Oriented X3, Cooperative HEENT: Atraumatic, PERRLA Neck: Supple, No JVD, No Thyromegaly Lungs: Normal Air Movement, Other (bilateral rhonchi) Heart: Normal S1, Normal S2, No Murmurs, Other (atrial fibrillation) Abdomen: Normal Bowel Sounds, Soft, No Tenderness, No Hepatosplenomegaly, No Masses Extremities: No Clubbing, No Cyanosis, No Edema, Normal Pulses, No Tenderness/Swelling Skin: No Rashes, No Breakdown, No Significant Lesion Neuro: Normal Gait, Normal Speech, Strength at 5/5 X4 Ext, Normal Tone, Sensation Intact Psych/Mental Status: Mental Status NL, Mood NL Results Lab Laboratory Tests 09/20/19 15:30 09/21/19 05:00 A/P-Cardiology Admission Diagnosis Shortness of breath Congestive heart failure, chronic compensated left ventricular diastolic dysfunction Coronary artery disease Hypertension Hyperlipidemia Assessment/Plan Shortness of breath, acute exacerbation of COPD, reporting improvement, managed by Dr. Skinner. Chronic atrial fibrillation, maintained on Eliquis, digoxin, amiodarone, continue to monitor, evaluate EKG, I will review 2-D echo Congestive heart failure, chronic compensated left ventricular diastolic dysfunction, mild elevation in BNP level. I will review 2-D echo Type II myocardial infarction, elevated troponin level, minimal, probably due to hypoxemia and shortness of breath, reporting that she had a stress test done about 6 months ago and it was normal at [facility] in [place], I will try to obtain copy of the results. Hypertension, monitor blood pressure Hyperlipidemia, monitor lipids Diabetes mellitus, followed and managed by primary care physician History of TIA with full recovery Clinical Quality Measures DVT/VTE Risk/Contraindication: Risk Factor Score Per Nursin RFS Level Per Nursing on Admit: 4+=Very High ODALYS PINEDA MD Sep 21, 2019 10:29 POS
--- NOTE | 2019-09-21 10:46 | NUR ---
RD ASSESSMENT PMHx: afib; COPD; CHF; HTN; HLD; DM; TIA PT INTERACTION: Pt was awake and pleasant during nutrition assessment. Pt states current appetite is "lousy" and has been for some time. Note pt PO intake of 25% x1meal, per chart review. Pt states following a low-sodium diet at home, and has no issues chewing/swallowing food. Pt states she wears dentures. Pt states recent episodes of nausea, but not vomiting. Pt states chronic episodes of constipation and diarrhea as she deals with IBS. Note last BM was 09/21, and pt currently on bowel regimen of colace BID. Pt states that her weight flucuates with fluid buildup, and that he UBW is around 170#. Note current weight of 154#, per chart review. Pt states current management of DM is pretty good, with her highest glucose reading of 200 and lowest of 134. Note unable to determine recent HbA1c, per chart review. ABNORMAL NUTRITION-RELATED LAB VALUES LOW: K 3.5 Cl 95; Ca 8.3; Pro 6.1 HIGH: glu 205; alkphos 153 Est. kcal needs: 8131-9615 kcal | 20-25 kcal/kg Est. Pro needs: 84-98 g Pro | 1.2-1.4 g Pro/kg PES STATEMENT: Inadequate oral intake (NI-2.1) related to loss of appetite | nausea | constipation | diarrhea as evidenced by pt interview | PO intake 25% x1meal INTERVENTION: Continue with current diet order of Heart Healthy diet. Add Glucerna (vary) with meals BID. Provides 220 kcal and 10 g Pro per serving. MONITOR/EVALUATE: PO Intake; Plan of Care; Hydration Status; Weight Status; Lab Values Irena Henley, MS, RD, LD
--- NOTE | 2019-09-21 10:49 | NUR ---
FALL CARE PLAN WAS ADDED
[2019-09-21] MEDS ORDERED: KCL 20 MEQ TAB (K-DUR) PO NR (11:30)
[2019-09-21 12:00] VITALS: BP 130/76
[2019-09-21 16:15] VITALS: BP 141/83
[2019-09-21 19:34] VITALS: BP 132/67
[2019-09-21] MEDS: FAMOTIDINE 20 MG (PEPCID) TABLET PO SCH (21:48)
[2019-09-22] VITALS: BP 131/78
[2019-09-22] MEDS: RT-ALBUTEROL/IPRATROPIUM 3 ML (DUONEB) VIAL IH SCH ×3 (00:30→10:36)
--- NOTE | 2019-09-22 02:10 | NUR ---
PT CRYING AND MOANING AND ALSO VERY ANXIOUS. PT IS RATING PAIN 10/10. DR MENARD NOTIFIED AND NEW ORDERS RECEIVED.
[2019-09-22] MEDS ORDERED: hydrOXYzine (VISTARIL/ATARAX) 25 MG capsule/tablet PO PRN (02:15)
[2019-09-22] MEDS ORDERED: fentaNYL INJECTION 100 MCG/2 ML AMP IVP PRN (02:15)
[2019-09-22] MEDS ORDERED: hydrOXYzine (ATARAX) 10 MG TAB ONE (02:23)
[2019-09-22] MEDS ORDERED: hydrOXYzine (ATARAX) 10 MG TAB PO PRN (02:30)
[2019-09-22 04:00] VITALS: BP 118/90
[2019-09-22 04:53] LABS: BASOPHILS % (AUTO) 0 % (0-10); EOSINOPHILS % (AUTO) 0 % (0-10); HEMATOCRIT 33 % (35-52); HEMOGLOBIN 10.3 G/DL (11.5-16.0); LYMPHOCYTES # (AUTO) 1.4 X 10^3 (1.0-4.0); LYMPHOCYTES % (AUTO) 9 % (12-44); MEAN CORPUSCULAR HEMOGLOBIN 32 PG (25-34); MEAN CORPUSCULAR HGB CONC 31 G/DL (32-36); MEAN CORPUSCULAR VOLUME 104 FL (80-99); MEAN PLATELET VOLUME 10.5 FL (7.4-10.4); MONOCYTES # (AUTO) 1.3 X 10^3 (0.0-1.0); MONOCYTES % (AUTO) 8 % (0-12); NEUTROPHILS % (AUTO) 83 % (42-75); PLATELET COUNT 260 10^3/uL (130-400); WHITE BLOOD COUNT 16.8 10^3/uL (4.3-11.0)
[2019-09-22 05:09] LABS: CALCIUM 9.2 MG/DL (8.5-10.1); CREATININE SERUM 1.17 MG/DL (0.60-1.30); MAGNESIUM 1.8 MG/DL (1.6-2.4); PHOSPHORUS 2.7 MG/DL (2.3-4.7); POTASSIUM 3.3 MMOL/L (3.6-5.0)
[2019-09-22] MEDS: KCL 10 MEQ TAB (MICRO K) PO SCH (06:05)
[2019-09-22] MEDS: HYDROcodone/APAP 5 MG/325 MG (LORTAB) TAB PO PRN ×2 (06:06→12:09)
[2019-09-22] MEDS: predniSONE 20 MG TAB PO SCH (06:07)
[2019-09-22] MEDS: BUMETANIDE 1 MG (BUMEX) TAB PO SCH (06:07)
[2019-09-22 06:42] LABS: LYMPHOCYTES % (MANUAL) 6 %; MONOCYTES % (MANUAL) 8 %; NEUTROPHILS % (MANUAL) 86 %
[2019-09-22 07:29] VITALS: BP 162/75
--- NOTE | 2019-09-22 08:09 | Diagnostic Imaging Report ---
EXAMINATION: Chest radiograph, portable AP view. DATE: 09/22/2019 3:58 AM hours. INDICATION: 68-year-old female, history of chronic obstructive pulmonary disease. Shortness of breath. COMPARISON: September 21, 2019. FINDINGS: Stable overall appearance of the cardiomediastinal silhouette. The right-sided venous line overlies the upper SVC. There is no identified pneumothorax. There is no large pleural effusion. There is no identified focal airspace consolidation. There are slightly prominent bilateral interstitial markings which are unchanged. IMPRESSION: 1. No identified interval acute cardiopulmonary abnormality. 2. Right-sided venous line position is unchanged. 3. Changes of chronic lung disease. Dictated by: Dictated on workstation # [id number]
[2019-09-22] MEDS: APIXABAN 5 MG (ELIQUIS) TABLET PO SCH (08:50)
[2019-09-22] MEDS: AMIODARONE 200 MG (CORDARONE) TAB PO SCH (08:50)
[2019-09-22] MEDS: DIGOXIN 0.125 MG (LANOXIN) TAB PO SCH (08:50)
[2019-09-22] MEDS: GABAPENTIN 400 MG (NEURONTIN) CAP PO SCH ×2 (08:51→12:09)
[2019-09-22] MEDS: FERROUS SULF 325 MG (IRON) TAB PO SCH (08:51)
[2019-09-22] MEDS: DOCUSATE SODIUM 100 MG (COLACE) CAP PO SCH (08:58)
--- NOTE | 2019-09-22 09:11 | Cardiology Progress Note ---
Subjective Date Seen by Provider: Sep 22, 2019 Time Seen by Provider: 09:10 Subjective/Events-last exam Patient is sitting in a chair, feeling better, breathing better, asking to go home Review of Systems General: No Chills, No Night Sweats, No Fatigue, No Malaise, No Appetite, No Other HEENT: No Head Aches, No Visual Changes, No Eye Pain, No Ear Pain, No Dysphasia, No Sinus Congestion, No Post Nasal Drip, No Sore Throat, No Other Pulmonary: Dyspnea; No Cough, No Pleuritic Chest Pain, No Other Cardiovascular: No: Chest Pain, Palpitations, Orthopnea, Paroxysmal Noc. Dyspnea, Edema, Lt Headedness, Other Focused Exam Lactate Level 09/20/19 15:30: Lactic Acid Level 0.83 Objective-Cardiology Exam Last Set of Vital Signs Vital Signs 09/22/19 07:29 Temp 36.2 Pulse 96 Resp 20 B/P (MAP) 162/75 (104) Pulse Ox 94 O2 Delivery Nasal Cannula O2 Flow Rate 4.00 Capillary Refill : Less Than 3 SecondsLess Than 3 Seconds I&O Intake and Output 09/22/19 00:00 Intake Total 3880 ml Output Total 3750 ml Balance 130 ml Intake Oral 2580 ml IV Total 1300 ml Output Urine Total 3750 ml # Bowel Movements 2 General: Alert, Oriented X3, Cooperative HEENT: Atraumatic, PERRLA Neck: Supple, No JVD, No Thyromegaly Lungs: Normal Air Movement, Other (bilateral rhonchi) Heart: Normal S1, Normal S2, No Murmurs, Other (atrial fibrillation) Abdomen: Normal Bowel Sounds, Soft, No Tenderness, No Hepatosplenomegaly, No Masses Extremities: No Clubbing, No Cyanosis, No Edema, Normal Pulses, No Tenderness/Swelling Skin: No Rashes, No Breakdown, No Significant Lesion Neuro: Normal Gait, Normal Speech, Strength at 5/5 X4 Ext, Normal Tone, Sens ation Intact Psych/Mental Status: Mental Status NL, Mood NL Results Lab Laboratory Tests 09/22/19 04:19 A/P-Cardiology Admission Diagnosis Shortness of breath Congestive heart failure, chronic compensated left ventricular diastolic dysfunction Coronary artery disease Hypertension Hyperlipidemia Assessment/Plan Shortness of breath, acute exacerbation of COPD, reporting improvement, managed by Dr. Skinner. Chronic atrial fibrillation, maintained on Eliquis, digoxin, amiodarone, I am a dding Cardizem CD 120 mg daily and monitor tolerance and response Congestive heart failure, chronic compensated left ventricular diastolic dysfunction, mild elevation in BNP level, severe pulmonary hypertension secondary to COPD Type II myocardial infarction, elevated troponin level, minimal, probably due to hypoxemia and shortness of breath, reporting that she had a stress test done about 6 months ago and it was normal at [facility] in [place], I will try to obtain copy of the results. Hypertension, adding Cardizem CD 120 mg daily to her current medication monitor blood pressure Hyperlipidemia, monitor lipids Diabetes mellitus, followed and managed by primary care physician History of TIA with full recovery Clinical Quality Measures DVT/VTE Risk/Contraindication: Risk Factor Score Per Nursin RFS Level Per Nursing on Admit: 4+=Very High ODALYS PINEDA MD Sep 22, 2019 09:11 POS
[2019-09-22] MEDS ORDERED: DILTIAZEM 120 MG (CARDIZEM CD) CAP PO SCH (09:15)
[2019-09-22] MEDS ORDERED: DILT120C88 PO (10:00)
[2019-09-22] MEDS ORDERED: FLUT12AE4 IH (10:00)
--- NOTE | 2019-09-22 10:09 | Discharge Inst-Simple/Standard ---
Discharge Inst-Standard Discharge Medications New, Converted or Re-Newed RX: Transmitted to Pharmacy Patient Instructions/Follow Up Plan of Care/Instructions/FU: Please continue to take your medications as written. Please follow up with your PCP in the next week and with your heart doctor in [address] Skinner in 2 weeks. Activity as Tolerated: Yes Discharge Diet: Cardiac Diet Return to The Hospital For: Shortness of breath, chest pain, racing heart rate, if you feel you are you are getting worse. Planned Outpatient Orders/Ref. Pneu Vac Indicated: Yes DAVIE MENARD MD Sep 22, 2019 10:09 POS
[2019-09-22] MEDS: RT-ADVAIR HFA 115/21 MCG PER PUFF IH SCH (10:36)
[2019-09-22 11:03] VITALS: BP 141/67
--- NOTE | 2019-09-22 11:28 | Discharge Summary ---
[facility] 09/22/19 1128: Diagnosis/Chief Complaint Date of Admission Sep 20, 2019 at 14:27 Date of Discharge Discharge Date: Sep 22, 2019 Discharge Time: 11:27 Admission Diagnosis AFIB SOB and Hypoxia Primary Care No,Local Physician Discharge Diagnosis (1) COPD (chronic obstructive pulmonary disease) Status: Acute (2) Atrial fibrillation Status: Chronic (3) Acute respiratory distress Status: Acute (4) Dementia Status: Chronic (5) Hypothyroidism Status: Chronic (6) Essential (primary) hypertension Status: Chronic (7) Normocytic anemia Status: Chronic (8) Non-insulin dependent type 2 diabetes mellitus Status: Chronic (9) Cardiomyopathy Status: Chronic Discharge Summary Discharge Physical Exam Allergies: Coded Allergies: ciprofloxacin (Unverified Allergy, Severe, RASH AND SOA, 09/20/19) levofloxacin (Verified Allergy, Severe, RASH AND SOA, 09/20/19) nitrofurantoin (Verified Allergy, Intermediate, UNSURE, 09/20/19) zolpidem (Verified Adverse Reaction, Mild, CONFUSION, 09/20/19) clopidogrel (Verified Adverse Reaction, Unknown, CAUSED HER TO BRUISE TOO EASILY, 09/20/19) heparin (Verified Adverse Reaction, Unknown, CAUSED HER TO BRUISE TOO EASILY, 09/20/19) lorazepam (Verified Adverse Reaction, Unknown, DOES NOT WANT HER TO HAVE, 09/20/19) piroxicam (Verified Adverse Reaction, Unknown, PT UNSURE, 09/20/19) Uncoded Allergies: IV DYE (Allergy, Intermediate, RASH, 09/20/19) Vitals & I&Os Vital Signs Date Time Temp Pulse Resp B/P (MAP) Pulse Ox O2 Delivery O2 Flow Rate FiO2 09/22/19 11:03 36.6 89 20 141/67 (91) 95 Nasal Cannula 3.00 General Appearance: No Apparent Distress, Chronically ill HEENT: PERRL/EOMI, Moist Mucous Membranes Respiratory: Chest Non Tender, Normal Breath Sounds, No Accessory Muscle Use, No Respiratory Distress Cardiovascular: Regular Rate, Rhythm, No Edema, Normal Peripheral Pulses Gastrointestinal: Normal Bowel Sounds, Non Tender; No Guarding Extremity: Normal Capillary Refill, No Calf Tenderness, No Pedal Edema Skin: Normal Color, Warm/Dry Neurologic/Psychiatric: Alert, Oriented x3, Normal Mood/Affect, treating engineer helper II-XII Norm as Tested Hospital Course Was the Problem List Reviewed?: Yes Mamta was admitted to [facility] on 09/21/19 and is being discharged today 09/22/19. She was admitted for SOB, hypoxia and Chronic AFIB. Pertinent PMH includeds but is not limited to COPD, Chronic AFIB, hypothyroidism, DEANDRE, HTN, High Cholesterol, GERD, IBS, Chronic MSK pain, Breast cancer, Dementia. and TIA. She was under the care of Dr. Yao Hospitalist. Dr. Breen Cardiology and Dr Skinner [facility] Consultant were both consulted. She underwent Venous Doppler that showed no DVT, Chest CT that had no acute abnormalities , Chest x-ray showed cardiomegaly and interstitial changes and an ECHO which we are waiting for results. Pertinent lab findings included elevated BNP and troponin, Hypokalemia, elevated WBC and anemia. The patient was found to be SOB using accessory muscles and wheezy. The patient was treated with diuretics, respiratory therapy, digoxin and her home medications continued. The patient showed tremendous improvement. She had >15ibs of fluids removed and is breathing a lot better and is no longer using accessory muscle to breath and is using home O2 of 4L to breath without issue. She no longer feels SOB. Heart has normalized and has had no issues since admittance and addition of medications. Tiopronin has decreased and has normalized. Hypokalemia is still present is likely chronic but is stable. WBC are still elevated but is secondary to steroid use. Anemia is chronic in nature. The patient is being discharged today in stable condition. The patients medications, follow ups and directions are in discharge paperwork. The following information is only a summary of the patients admission at [facility] and is not all inclusive. Please review the entire chart for more information. Labs (last 24 hrs) Laboratory Tests 09/22/19 04:19: White Blood Count 16.8H, Red Blood Count 3.18L, Hemoglobin 10.3L, Hematocrit 33L , Mean Corpuscular Volume 104H, Mean Corpuscular Hemoglobin 32, Mean Corpuscular Hemoglobin Concent 31L, Red Cell Distribution Width 16.0H, Platelet Count 260, Mean Platelet Volume 10.5H, Neutrophils (%) (Auto) 83H, Lymphocytes (%) (Auto) 9L, Monocytes (%) (Auto) 8, Eosinophils (%) (Auto) 0, Basophils (%) (Auto) 0, Neutrophils # (Auto) 14.0H, Lymphocytes # (Auto) 1.4, Monocytes # (Auto) 1.3H, Eosinophils # (Auto) 0.0, Basophils # (Auto) 0.0, Neutrophils % (Manual) 86, Lymphocytes % (Manual) 6, Monocytes % (Manual) 8, Sodium Level 136, Potassium Level 3.3L, Chloride Level 94L, Carbon Dioxide Level 28, Anion Gap 14, Blood Urea Nitrogen 20H, Creatinine 1.17, Estimat Glomerular Filtration Rate 46, BUN/Creatinine Ratio 17, Glucose Level 146H, Calcium Level 9.2, Phosphorus Level 2.7, Magnesium Level 1.8 Microbiology 09/20/19 Gram Stain - Final, Resulted 09/20/19 Sputum Culture, Resulted Pending Patient resulted labs reviewed. Pending Labs Laboratory Tests 09/22/19 04:19: White Blood Count 16.8, Red Blood Count 3.18, Hemoglobin 10.3, Hematocrit 33, Mean Corpuscular Volume 104, Mean Corpuscular Hemoglobin 32, Mean Corpuscular Hemoglobin Concent 31, Red Cell Distribution Width 16.0, Platelet Count 260, Mean Platelet Volume 10.5, Neutrophils (%) (Auto) 83, Lymphocytes (%) (Auto) 9, Monocytes (%) (Auto) 8, Eosinophils (%) (Auto) 0, Basophils (%) (Auto) 0, Neutrophils # (Auto) 14.0, Lymphocytes # (Auto) 1.4, Monocytes # (Auto) 1.3, Eosinophils # (Auto) 0.0, Basophils # (Auto) 0.0, Neutrophils % (Manual) 86, Lymphocytes % (Manual) 6, Monocytes % (Manual) 8, Sodium Level 136, Potassium Level 3.3, Chloride Level 94, Carbon Dioxide Level 28, Anion Gap 14, Blood Urea Nitrogen 20, Creatinine 1.17, Estimat Glomerular Filtration Rate 46, BUN/Creatinine Ratio 17, Glucose Level 146, Calcium Level 9.2, Phosphorus Level 2.7, Magnesium Level 1.8 Imaging: Reviewed Imaging Report Discharge Home Medications: Active Scripts Active Advair Hfa 115-21 Mcg Inhaler (Fluticasone/Salmeterol) 12 Gm Hfa.aer.ad 2 Puff IH BID@08,20 Diltiazem 24Hr Cd (Diltiazem HCl) 120 Mg Cap.er.24h 120 Mg PO DAILY Reported Voltaren (Diclofenac Sodium) 100 Gm Gel..gram. 2 Gm TP Q6H PRN Narcan (Naloxone HCl) 4 Mg Stuart NS UD PRN Prednisone 5 Mg Tablet 5 Mg PO BID 20 Days #40 TABLETS/ 20 DAY SUPPLY FILLED 09-12-19 Ferrous Sulfate 325 Mg Tablet 325 Mg PO DAILY Gabapentin 400 Mg Capsule 400 Mg PO TID Levothyroxine Sodium 100 Mcg Tablet 100 Mcg PO DAILY LAST FILLED #60 06-15-19 Cyclobenzaprine HCl 10 Mg Tablet 10 Mg PO TID PRN Vitamin C (Ascorbate Calcium) 500 Mg Tablet 500 Mg PO DAILY Colace (Docusate Sodium) 100 Mg Capsule 100 Mg PO BID Tylenol (Acetaminophen) 325 Mg Tablet 325 Mg PO Q6H PRN Magnesium (Magnesium Oxide) 400 Mg Tablet 400 Mg PO BID Potassium Chloride 10 Meq Tablet.er 20 Meq PO DAILY TAKES 2 (10MEQ) TABLETS Iprat-Albut 0.5-3(2.5) mg/3 ml (Ipratropium/Albuterol Sulfate) 3 Ml Ampul.neb 3 Ml NEB QID PRN Ondansetron HCl 4 Mg Tablet 4 Mg PO Q6H PRN Ventolin Hfa (Albuterol Sulfate) 1 Puff Puff 1-2 Puff INH Q4H PRN 1 PUFF = 90 MCG Amiodarone HCl 200 Mg Tablet 200 Mg PO BID Linzess (Linaclotide) 145 Mcg Capsule 145 Mcg PO DAILY Letrozole 2.5 Mg Tablet 2.5 Mg PO DAILY Venlafaxine HCl 75 Mg Tab 75 Mg PO DAILY Eliquis (Apixaban) 5 Mg Tablet 5 Mg PO BID Dicyclomine HCl 20 Mg Tablet 20 Mg PO TID Hydrocodone-Acetamin 5-325 mg (Hydrocodone/Acetaminophen) 1 Each Tablet 1 Tab PO Q6H PRN Digoxin 125 Mcg Tablet 125 Mcg PO DAILY Bumetanide 1 Mg Tablet 2.5 Mg PO BID TAKES 2 & 1/2 (1MG) TABLET Instructions to patient/family Please see electronic discharge instructions given to patient. Clinical Quality Measures DVT/VTE Risk/Contraindication: Risk Factor Score Per Nursin RFS Level Per Nursing on Admit: 4+=Very High DAVIE YAO MD 09/23/19 1340: Discharge Summary Discharge Physical Exam Allergies: Coded Allergies: ciprofloxacin (Unverified Allergy, Severe, RASH AND SOA, 09/20/19) levofloxacin (Verified Allergy, Severe, RASH AND SOA, 09/20/19) nitrofurantoin (Verified Allergy, Intermediate, UNSURE, 09/20/19) zolpidem (Verified Adverse Reaction, Mild, CONFUSION, 09/20/19) clopidogrel (Verified Adverse Reaction, Unknown, CAUSED HER TO BRUISE TOO EASILY, 09/20/19) heparin (Verified Adverse Reaction, Unknown, CAUSED HER TO BRUISE TOO EASILY, 09/20/19) lorazepam (Verified Adverse Reaction, Unknown, DOES NOT WANT HER TO HAVE, 09/20/19) piroxicam (Verified Adverse Reaction, Unknown, PT UNSURE, 09/20/19) Uncoded Allergies: IV DYE (Allergy, Intermediate, RASH, 09/20/19) Discussion & Recommendations Discharge Planning: >30 minutes discharge planning Supervisory-Addendum Brief Verification & Attestation Participated in pt care: history, MDM, physical Personally performed: exam, history, MDM, supervision of care Care discussed with: Medical Student Procedures: n/a Results interpretation: Verified all documentation Verification and Attestation of Medical Student E/M Service A medical student performed and documented this service in my presence. I reviewed and verified all information documented by the medical student and made modifications to such information, when appropriate. I personally performed the physical exam and medical decision making. Davie Yao, Sep 23, 2019,13:39 Problem Qualifiers (1) COPD (chronic obstructive pulmonary disease): COPD type: unspecified COPD Qualified Codes: J44.9 - Chronic obstructive pulmonary disease, unspecified (2) Atrial fibrillation: Atrial fibrillation type: longstanding persistent Qualified Codes: I48.11 - Longstanding persistent atrial fibrillation (3) Dementia: Dementia type: unspecified type Dementia behavioral disturbance: without behavioral disturbance Qualified Codes: F03.90 - Unspecified dementia without behavioral disturbance (4) Hypothyroidism: Hypothyroidism type: unspecified Qualified Codes: E03.9 - Hypothyroidism, unspecified (5) Cardiomyopathy: Cardiomyopathy type: unspecified Qualified Codes: I42.9 - Cardiomyopathy, unspecified [facility] Sep 22, 2019 11:28 DAVIE DICKEY MD Sep 23, 2019 13:40 POS
[2019-09-22] MEDS: CYCLOBENZAPRINE 10 MG (FLEXERIL) TAB PO PRN (12:09)
[2019-09-22 15:47] VITALS: BP 141/67
--- NOTE | 2019-09-24 12:01 | NUR ---
CM F/U: [facility] [place] [facility] clinical information. Patient is on service with them et they need clinical to continue care. Requested information faxed to them at [phone].
== END 2019-09-22 15:47 | disposition home health service (06) | DRG 190 ==
LOC: 4TH 14:27
PROVIDERS: ADMIT Family Medicine; ATTEND Family Medicine
DX: J44.1 Chronic obstructive pulmonary disease with (acute) exacerbation (principal); I21.A1 Myocardial infarction type 2; R06.03 Acute respiratory distress; R09.02 Hypoxemia; I11.0 Hypertensive heart disease with heart failure; I50.32 Chronic diastolic (congestive) heart failure; I48.19 Other persistent atrial fibrillation; I42.9 Cardiomyopathy, unspecified; Z66 Do not resuscitate; E11.9 Type 2 diabetes mellitus without complications; I27.20 Pulmonary hypertension, unspecified; I25.10 Atherosclerotic heart disease of native coronary artery without angina pectoris; E78.5 Hyperlipidemia, unspecified; G47.33 Obstructive sleep apnea (adult) (pediatric); K21.9 Gastro-esophageal reflux disease without esophagitis; K58.9 Irritable bowel syndrome, unspecified; E03.9 Hypothyroidism, unspecified; E87.6 Hypokalemia; F03.90 Unspecified dementia, unspecified severity, without behavioral disturbance, psychotic disturbance, mood disturbance, and anxiety; D64.9 Anemia, unspecified; M79.18 Myalgia, other site; Z99.81 Dependence on supplemental oxygen; Z87.891 Personal history of nicotine dependence; Z85.3 Personal history of malignant neoplasm of breast; Z86.73 Personal history of transient ischemic attack (TIA), and cerebral infarction without residual deficits
CPT/HCPCS: 36415; 71045; 71275; 80048; 80053; 80061; 80162; 81000; 82805; 83605; 83735; 83880; 84100; 84443; 84484; 85007; 85025; 85027; 87070; 87077; 87185; 87205; 93005; 93306; 93970; 94640; 94660; 94760

== ENCOUNTER → 2019-12-10 | Outpatient (CLI) | payer MEDICARE, MEDICAID ==
[~2019-12-10] MED LIST: ACET325T38 PO; AMIO200T4 PO; APIX5TAB PO; ASCO-262 PO; BUME1TAB8 PO; CATHETER FLUSH 10 ML SYR IV PRN; CYCL10TA9 PO; DICL100G18 TP; DICY20TA10 PO; DIGO125T3 PO; DILT120C88 PO; DOCU-143 PO; FERR325T18 PO; FLUT12AE4 IH; GABA-490 PO; HOLD METFORMIN - RECEIVED CONTRAST 20 ML VIAL IV SCH; HYDR-3812 PO; IOHEXOL 350 MG/ML 100 ML (OMNIPAQUE 350) VIAL IV ONE; IPRA3AMP31 NEB; LETR2.5T6 PO; LEVO100T7 PO; LINA145C PO; MAGN400T39 PO; NALO4SPR NS; NS 100 ML (IVPB) BAG IV ONE; ONDA-105 PO; POTA10TA10 PO; PRED5TAB PO; RT-ALBUINH INH; RT-ALBUTEROL SULF 2.5 MG/3 ML PRE-MIX VIAL INH ONE; VNL75T PO
[2019-12-10 12:16] LABS: CREATININE SERUM 1.09 MG/DL (0.60-1.30)
--- NOTE | 2019-12-10 14:29 | Diagnostic Imaging Report ---
PROCEDURE: CT chest with contrast only. TECHNIQUE: Multiple contiguous axial images were obtained through the chest after administration of intravenous contrast. Auto Exposure Controls were utilized during the CT exam to meet ALARA standards for radiation dose reduction. DATE: December 10, 2019. COMPARISON: CT chest September 20, 2019. INDICATION: 69-year-old female, shortness of breath. History of COPD. History of breast cancer. FINDINGS: There is a 4 mm right middle lobe pulmonary nodule on axial image 90 which is unchanged since September 20, 2019. There is a partially calcified right lower lobe pulmonary nodule on axial image 91 measuring 12 mm in size. This is unchanged since September 20, 2019. These calcifications are eccentric in location. There is no identified new or enlarging pulmonary nodule. There are upper lobe predominant findings of emphysema. There is no additional focal airspace consolidation. There is no pneumothorax. There is no pleural effusion. The heart is enlarged. The main pulmonary artery diameter is abnormally enlarged measuring 4.1 cm in diameter consistent with pulmonary artery hypertension. There is no identified pulmonary embolus. There is no pericardial effusion. There are atherosclerotic calcifications. There is no identified abnormally enlarged mediastinal, hilar, or axillary lymph node which meets CT size criteria for adenopathy. There is a fat-containing lesion in the left breast on axial image 69 which is consistent with benign etiology. There is a very small accessory splenule. Additional evaluation of the imaged portions of the upper abdomen is grossly unremarkable. There are degenerative changes of the spine. There is a compression type fracture involving T7 with visible fracture line. There is approximately 25% height loss. There is no retropulsed fracture fragment. There is no fracture involvement of the posterior elements. This is unchanged since September 20, 2019. IMPRESSION: CT CHEST. 1. Indeterminate right middle lobe and right lower lobe pulmonary nodules which are stable in size since September 20, 2019. Recommend comparison with earlier prior cross-sectional imaging if available to evaluate for potential stability. These findings are not present on prior CT abdomen and pelvis CT exam of August 05, 2016. If long-term stability cannot be documented, PET CT should be considered for further evaluation, especially given the 12 mm right lower lobe pulmonary nodule. 2. Upper lobe predominant findings of emphysema. 3. Abnormally dilated main pulmonary artery diameter suggesting pulmonary artery hypertension. No identified pulmonary embolus. 4. Unchanged T7 compression deformity since at least September 20, 2019. Dictated by: Dictated on workstation # [id number]
== END ==
LOC: RAD 11:28
PROVIDERS: ATTEND Nurse Practitioner Family
DX: J43.9 Emphysema, unspecified (principal); J96.20 Acute and chronic respiratory failure, unspecified whether with hypoxia or hypercapnia; I28.1 Aneurysm of pulmonary artery; R91.8 Other nonspecific abnormal finding of lung field
CPT/HCPCS: 36415; 71260; 82565; 84520; 94060; 94640; 94726; 94729

== ENCOUNTER → 2020-04-21 | Outpatient (CLI) | payer MEDICARE, MEDICAID ==
[~2020-04-21] MED LIST changes: +ACHD5005 PO; -CATHETER FLUSH 10 ML SYR IV PRN; -HOLD METFORMIN - RECEIVED CONTRAST 20 ML VIAL IV SCH; -HYDR-3812 PO; -IOHEXOL 350 MG/ML 100 ML (OMNIPAQUE 350) VIAL IV ONE; -NS 100 ML (IVPB) BAG IV ONE; -RT-ALBUTEROL SULF 2.5 MG/3 ML PRE-MIX VIAL INH ONE
[2020-04-21 15:37] LABS: CREATININE SERUM 1.34 MG/DL (0.60-1.30)
--- NOTE | 2020-04-21 17:50 | Diagnostic Imaging Report ---
PROCEDURE: CT chest without contrast. TECHNIQUE: Multiple contiguous axial images were obtained through the chest without the use of intravenous contrast. Auto Exposure Controls were utilized during the CT exam to meet ALARA standards for radiation dose reduction. INDICATION: Hypoxemia. COMPARISON: December 10, 2019, and September 20, 2019. FINDINGS: Postsurgical changes within the left breast with associated fat necrosis. Right-sided Port-A-Cath is in place, stable from the prior exam. No significant adenopathy within the chest. Scattered vascular calcifications without aneurysmal dilatation of the thoracic aorta. The heart is enlarged. No pericardial effusion. Enlargement of the main pulmonary artery measuring 4.2 cm is again identified, stable from the prior examination. This is associated with enlargement of the right and left pulmonary arteries. No significant pleural effusion. No pneumothorax. Background centrilobular emphysematous changes are present, greatest within the upper lobes. Mild scarring and/or atelectasis within the lingula. Calcified granuloma within the left lower lobe. 1 cm partially calcified right lower lobe pulmonary nodule is again identified, stable from the prior examination. Stable 0.3 cm right middle lobe pulmonary nodule, axial image 86. No new pulmonary nodules. No new focal pulmonary consolidation. The trachea is patent. Punctate nonobstructing calculus within the left kidney. Background vascular calcifications within the partially visualized upper abdomen. Visualized upper abdomen is otherwise unremarkable. Moderate anterior wedge deformity of T7 is identified, appearing stable since the prior examination. No acute osseous abnormality. IMPRESSION: 1. Stable right-sided pulmonary nodules, as described above. Recommend a follow-up CT of the chest in one year to ensure stability. 2. Stable-appearing background mild fibroemphysematous changes without new focal pulmonary opacity or nodule. 3. Enlargement of the pulmonary arteries, consistent with pulmonary artery hypertension, stable from the prior examination. This is associated with cardiomegaly. 4. Additional stable chronic and postsurgical changes, as above. Dictated by: Dictated on workstation # [id number]
== END ==
LOC: RAD 14:55
PROVIDERS: ATTEND Nurse Practitioner Family
DX: J43.9 Emphysema, unspecified (principal); J96.20 Acute and chronic respiratory failure, unspecified whether with hypoxia or hypercapnia; R91.8 Other nonspecific abnormal finding of lung field; Z85.3 Personal history of malignant neoplasm of breast; I28.8 Other diseases of pulmonary vessels; Z98.890 Other specified postprocedural states
CPT/HCPCS: 36415; 71250; 82565; 84520